=== PATIENT | female | born 2000 ===

== ENCOUNTER 2022-05-28 08:57 | Emergency (ER) | payer OTHER ==
[~2022-05-28] VITALS: Ht 154.9 cm; Wt 90.9 kg
[2022-05-28 09:02] VITALS: TEMP 98.6
[2022-05-28 09:44] LABS: COLLECTION METHOD CLEAN CATCH; URINE APPEARANCE Clear (CLEAR/HAZY); URINE COLOR Yellow (YELLOW)
[2022-05-28 09:45] LABS: PH 5.5 (5.0-8.5); URINE BLOOD Negative (NEGATIVE); URINE GLUCOSE Negative (NEGATIVE); URINE KETONE 3+ (NEGATIVE); URINE NITRATE Negative (NEGATIVE); URINE PROTEIN(semi-quant) Negative (NEGATIVE); URINE UROBILINOGEN 0.2 E.U/dL (0.2-1.0)
[2022-05-28 09:46] LABS: MUCOUS Present (NOT PRESENT); URINE BACTERIA None Seen /hpf (NONE SEEN); URINE RBC None Seen /hpf (0-2); URINE WBC 0-2 /hpf (0-2)
[2022-05-28 09:56] LABS: BASO # 0.1 K/mm3 (0.0-0.2); BASO % 0.4 % (0.0-2.0); EOS # 0.1 K/mm3 (0.0-0.7); EOS % 0.6 % (0.0-4.0); GRAN % 84.7 % (42.2-75.2); HEMATOCRIT 49.6 % (37.0-47.0); HEMOGLOBIN 16.8 g/dl (12.5-16.0); LYMPH # 1.3 K/mm3 (1.2-3.4); LYMPH % 10.1 % (20.0-51.0); MEAN CELL VOLUME 82 fl (80.0-100.0); MEAN CORPUSCULAR HEMOGLOBIN 28 pg (27-31); MEAN CORPUSCULAR HGB CONC 34 g/dl (33.0-37.0); MEAN PLATELET VOLUME 9.4 fl (7.4-10.4); MONO # 0.5 K/mm3 (0.1-0.6); MONO % 3.8 % (1.7-9.3); PLATELET COUNT 335 K/mm3 (130-400); RED BLOOD COUNT 6.03 M/mm3 (4.10-5.30); REDCELL DISTRIBUTION WIDTH-CV 14.2 % (11.5-14.5)
[2022-05-28 10:08] LABS: ALBUMIN 4.6 gm/dL (3.5-5.0); BILIRUBIN,TOTAL 0.6 mg/dL (0.2-1.2); C-REACTIVE PROTEIN 0.22 mg/dL (0.00-0.50); CALCIUM 9.7 mg/dL (8.4-10.2); CREATININE, serum 0.86 mg/dL (0.57-1.11); POTASSIUM 3.7 mmol/L (3.5-4.5); TOTAL PROTEIN 8.8 gm/dL (6.2-8.1)
[2022-05-28] MEDS ORDERED: FLAGYL500 MG PO ×2 (12:16)
[2022-05-28] MEDS ORDERED: ROXICODONE 55 MG/TAB PO (12:16)
[2022-05-28] MEDS ORDERED: CIPRO 500MG TA500 MG PO ×2 (12:16)
[2022-05-28 12:34] VITALS: BP 165/91; PULSE 60
[2022-05-28] MEDS ORDERED: ZOFRAN 4MG T4 MG/TAB PO (12:58)
[2022-05-28] MEDS ORDERED: ESTRACE0.1 MG/GM VG (23:06)
[2022-05-28] MEDS ORDERED: ANDRODERM2.5 MG/24 TD (23:06)
== END 2022-05-28 12:37 | disposition home or self-care (01) ==
LOC: COL.ER 08:57
PROVIDERS: Emergency Medicine
DX: R10.13 Epigastric pain (principal); R11.0 Nausea; D72.829 Elevated white blood cell count, unspecified; Z88.1 Allergy status to other antibiotic agents; Z32.02 Encounter for pregnancy test, result negative
CPT/HCPCS: J2270; J2405; Q9967

== ENCOUNTER 2023-07-31 14:34 | Emergency (ER) | payer OTHER ==
[~2023-07-31] VITALS: Ht 154.9 cm; Wt 84.1 kg
[~2023-07-31 14:34] MED LIST: ANDRODERM2.5 MG/24 TD; CIPRO 500MG TA500 MG PO; ESTRACE0.1 MG/GM VG; FLAGYL500 MG PO; ROXICODONE 55 MG/TAB PO; ZOFRAN 4MG T4 MG/TAB PO
[2023-07-31 14:39] VITALS: TEMP 98.2
[2023-07-31 15:56] VITALS: BP 124/68; PULSE 63
== END 2023-07-31 15:56 | disposition home or self-care (01) ==
LOC: COL.ER 14:34 → EDBEDREQ 15:30 → COL.ER 15:56
DX: R20.2 Paresthesia of skin (principal)